=== PATIENT | female | born 1980 ===

== ENCOUNTER 2017-04-08 08:16 | Inpatient (IN) | payer BC ==
[2017-04-08] MEDS ORDERED: Sodium Chloride 0.9% 2.5 ML Syringe FLUSH PRN (08:36)
[2017-04-08] MEDS ORDERED: Methylergonovine 0.2 MG/1 ML Amp IM PRN (08:36)
[2017-04-08] MEDS ORDERED: Misoprostol 200 MCG Tab PO PRN (08:36)
[2017-04-08] MEDS ORDERED: Sodium Chloride 0.9% 10 ML Syringe FLUSH PRN (08:36)
[2017-04-08] MEDS ORDERED: Water For Irrigation,Sterile 1,000 ML Container IRR PRN (08:36)
[2017-04-08] MEDS ORDERED: Nalbuphine 10 MG/1 ML Vial IVPUSH PRN (08:36)
[2017-04-08] MEDS ORDERED: Tranexamic Acid 1,000 MG in Sodium Chloride 0.9% 100 ML IV PRN (08:36)
[2017-04-08] MEDS ORDERED: Carboprost Tromethamine 250 MCG/1 ML Amp IM PRN (08:36)
[2017-04-08] MEDS ORDERED: Lidocaine 1% 50 ML MDV INJECT PRN (08:36)
[2017-04-08] MEDS ORDERED: Terbutaline 1 MG/ML SDV SUBCUT PRN (08:38)
[2017-04-08] MEDS ORDERED: Oxytocin/0.9 % Sodium Chloride 30 UNIT/500 ML BAG IV SCH (08:45)
[2017-04-08] MEDS: Lactated Ringers 1,000 ML IV SCH ×2 (09:29→13:35)
--- NOTE | 2017-04-08 10:16 | PCM.LDHP ---
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 Source of Information: Patient History Limitations: Reports: No Limitations - History of Present Illness Improves with: Reports: None Worsens with: Reports: None Associated Symptoms: Reports: N - Related Data Allergies/Adverse Reactions: Allergies Allergy/AdvReac Type Severity Reaction Status Date / Time Sulfa (Sulfonamide Allergy Hives Verified 11/01/13 13:25 Antibiotics) Past Medical History ANESTHETIST History: Reports: , Spontaneous Neurological History: Reports: Migraines Psychiatric History: Reports: Depression, Mood Swings, Panic Attack - Infectious Disease History Infectious Disease History: Reports: Chicken Pox, Influenza Social & Family History - Family History HEENT: Reports: Cataract, Otitis Media Cardiac: Reports: High Cholesterol, Hypertension, [place] Respiratory: Reports: Sleep Apnea GI: Reports: Cholelithiasis : Reports: Renal Calculus OBGYN: Reports: Musculoskeletal: Reports: Arthritis, Back pain, Chronic, Neck Pain, Chronic Neurological: Reports: Migraines, Seizure Psychiatric: Reports: Abuse, Victim of, Anxiety, Bipolar, Depression, Mood Swings, OCD, Panic Attack - Tobacco Use Smoking Status *Q: Current Every Day Smoker Years of Tobacco use: 19 Packs/Tins Daily: 0.5 Second Hand Smoke Exposure: Yes - Caffeine Use Caffeine Use: Reports: Energy Drinks, Soda - Recreational Drug Use Recreational Drug Use: No H&P Review of Systems - Review of Systems: Review Of Systems: See Below General: Reports: No Symptoms HEENT: Reports: No Symptoms Pulmonary: Reports: No Symptoms Cardiovascular: Reports: No Symptoms Gastrointestinal: Reports: No Symptoms Genitourinary: Reports: No Symptoms Musculoskeletal: Reports: No Symptoms Skin: Reports: No Symptoms Psychiatric: Reports: No Symptoms Neurological: Reports: No Symptoms Hematologic/Lymphatic: Reports: No Symptoms Immunologic: Reports: No Symptoms L&D Exam - Exam Exam: See Below - Vital Signs Weight: 87.543 kg - Noguera Score Noguera Score Cervix Position: Midposition Noguera Score Consistency: Soft Noguera Score Effacement: >80% Noguera Score Dilation: 3-4 cm Noguera Score 's Station: -3 Noguera Score Total: 8 - Exam General: Alert, Oriented, Cooperative, Mild Distress HEENT: Hearing Intact Lungs: Clear to Auscultation, Normal Respiratory Effort Cardiovascular: Regular Rate, Regular Rhythm, Normal S1, Normal S2 GI/Abdominal Exam: Soft, Non-Tender Rectal Exam: Deferred Genitourinary: Normal external exam, Normal bimanual exam, Cervical dilitation Back Exam: Full Range of Motion Extremities: Normal Range of Motion, Non-Tender, No Pedal Edema, Normal Capillary Refill Skin: Warm, Dry, Intact Neurological: Reflexes Equal Bilateral, Normal Speech, Normal Tone Psychiatric: Alert, Normal Affect, Normal Mood - Patient Data Lab Results Last 24 hrs: Laboratory Results - last 24 hr 04/08/17 04/08/17 Range/Units 08:50 08:50 WBC 12.54 H (4.0-11.0) K/uL RBC 3.67 L (4.30-5.90) M/uL Hgb 9.9 L (12.0-16.0) g/dL Hct 30.3 L (36.0-46.0) % MCV 82.6 (80.0-98.0) fL MCH 27.0 (27.0-32.0) pg MCHC 32.7 (31.0-37.0) g/dL RDW Std Deviation 41.6 (28.0-62.0) fl RDW Coeff of Gely 14 (11.0-15.0) % Plt Count 365 (150-400) K/uL MPV 8.90 (7.40-12.00) fL Nucleated RBC % 0.0 /100WBC Nucleated RBCs # 0 K/uL Blood Type O POSITIVE Antibody Screen NEGATIVE Result Diagrams: 04/08/17 08:50 - Problem List (1) Supervision of normal IUP (intrauterine ) in multigravida SNOMED Code(s): 123106731, 832169101 ICD Code: Z34.80 - ENCOUNTER FOR SUPRVSN OF NORMAL , UNSP TRIMESTER Status: Acute Priority: High Current Visit: Yes Qualifiers: Trimester: third trimester Qualified Code(s): Z34.83 - Encounter for supervision of other normal , third trimester Problem List Initiated/Reviewed/Updated: Yes Orders Last 24hrs: Active Orders 24 hr Category Date Time Status Patient Status [ADT] Routine ADT 04/08/17 08:36 Active Bedrest Bathroom Privileges [RC] ASDIRECTED Care 04/08/17 08:38 Active Communication Order [RC] ASDIRECTED Care 04/08/17 08:38 Active Communication Order [RC] ASDIRECTED Care 04/08/17 08:38 Active Heart Tones [RC] CONTINUOUS Care 04/08/17 08:36 Active Non Stress Test [RC] PER UNIT ROUTINE Care 04/08/17 08:36 Active May Shower [RC] ASDIRECTED Care 04/08/17 08:36 Active Notify Provider [RC] PRN Care 04/08/17 08:36 Active Notify Provider [RC] PRN Care 04/08/17 08:38 Active Oxygen Therapy [RC] ASDIRECTED Care 04/08/17 08:38 Active Up ad Jeanette [RC] ASDIRECTED Care 04/08/17 08:36 Active Vaginal Exam [RC] PRN Care 04/08/17 08:36 Active Vaginal Exam [RC] PRN Care 04/08/17 08:38 Active Vital Signs [RC] PER UNIT ROUTINE Care 04/08/17 08:36 Active Vital Signs [RC] PER UNIT ROUTINE Care 04/08/17 08:38 Active Regular Diet [DIET] Diet 04/08/17 Lunch Active Carboprost Tromethamine [Hemabate DS] Med 04/08/17 08:36 Active 250 mcg IM ASDIRECTED PRN Lactated Ringers [Ringers, Lactated] 1,000 ml Med 04/08/17 08:45 Active IV ASDIRECTED Lidocaine 1% [Xylocaine 1%] Med 04/08/17 08:36 Active 50 ml INJECT .ONCE PRN Methylergonovine [Methergine] Med 04/08/17 08:36 Active 0.2 mg IM ASDIRECTED PRN Misoprostol [Cytotec] Med 04/08/17 08:36 Active 200 mcg PO .ONCE PRN Nalbuphine [Nubain] Med 04/08/17 08:36 Active 10 mg IVPUSH Q1H PRN Oxytocin/0.9 % Sodium Chloride [Oxytocin 30 Unit/500 ML Med 04/08/17 08:45 Active -NS] 30 unit in 500 ml IV TITRATE Sodium Chloride 0.9% [Saline Flush] Med 04/08/17 08:36 Active 10 ml FLUSH ASDIRECTED PRN Sodium Chloride 0.9% [Saline Flush] Med 04/08/17 08:36 Active 2.5 ml FLUSH ASDIRECTED PRN Terbutaline [Brethine] Med 04/08/17 08:38 Active 0.25 mg SUBCUT ASDIRECTED PRN Tranexamic Acid [Cyklokapron] 1,000 mg Med 04/08/17 08:36 Active Sodium Chloride 0.9% [Normal Saline] 100 ml IV ONETIME Water For Irrigation,Sterile [Sterile Water for Med 04/08/17 08:36 Active Irrigation] 1,000 ml IRR ASDIRECTED PRN Scalp Electrode [WOMSER] Per Unit Routine Oth 04/08/17 08:36 Ordered Medication Administration Instruction [OM.PC] Q3H Oth 04/08/17 08:45 Ordered Peripheral IV Insertion Adult [OM.PC] Routine Oth 04/08/17 08:36 Ordered Resuscitation Status Routine Resus Stat 04/08/17 08:36 Ordered Medication Orders Carboprost Tromethamine (Hemabate Ds) 250 mcg IM ASDIRECTED PRN PRN Reason: Post Hemorrhage Lactated Ringer's (Ringers, Lactated) 1,000 mls @ 150 mls/hr IV ASDIRECTED JENNIFER Last Admin: 04/08/17 09:29 Dose: 150 mls/hr Tranexamic Acid 1,000 mg/ (Sodium Chloride) 110 mls @ 660 mls/hr IV ONETIME PRN PRN Reason: Bleeding Oxytocin/Sodium Chloride (Oxytocin 30 Unit/500 Ml-Ns) 30 unit in 500 mls @ 2 mls/hr IV TITRATE JENNIFER; 2 MUNITS/MIN PRN Reason: Protocol Last Titration: 04/08/17 09:58 Dose: 4 munits/min, 4 mls/hr Admin: 04/08/17 09:31 Dose: 2 munits/min, 2 mls/hr Lidocaine HCl (Xylocaine 1%) 50 ml INJECT .ONCE PRN PRN Reason: Laceration repair Methylergonovine Maleate (Methergine) 0.2 mg IM ASDIRECTED PRN PRN Reason: Post Hemorrhage Misoprostol (Cytotec) 200 mcg PO .ONCE PRN PRN Reason: Post Hemorrhage Nalbuphine HCl (Nubain) 10 mg IVPUSH Q1H PRN PRN Reason: Pain (severe 7-10) Sodium Chloride (Saline Flush) 10 ml FLUSH ASDIRECTED PRN PRN Reason: Keep Vein Open Sodium Chloride (Saline Flush) 2.5 ml FLUSH ASDIRECTED PRN PRN Reason: Keep Vein Open Sterile Water (Sterile Water For Irrigation) 1,000 ml IRR ASDIRECTED PRN PRN Reason: delivery Terbutaline Sulfate (Brethine) 0.25 mg SUBCUT ASDIRECTED PRN PRN Reason: Tacysystole Assessment/Plan Comment:: IOL A: 36 yo EDC 04/14/2017 39 0/7 O+, RI, GBS neg, 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
--- NOTE | 2017-04-08 13:15 | PCM.PREANE ---
Preanesthetic Assessment - Anesthesia/Transfusion/Family Hx Anesthesia History: Prior Anesthesia Without Reaction - Review of Systems General: No Symptoms Pulmonary: No Symptoms Cardiovascular: No Symptoms Gastrointestinal: No Symptoms Neurological: No Symptoms Other: Reports: None - Physical Assessment Height: 5 ft 7 in Weight: 87.543 kg ASA Class: 2 Mental Status: Alert & Oriented x3 Airway Class: Mallampati = 2 Dentition: Reports: Normal Dentition Thyro-Mental Finger Breadths: 3 Mouth Opening Finger Breadths: 3 ROM/Head Extension: Full Lungs: Clear to Auscultation, Normal Respiratory Effort Cardiovascular: Regular Rate, Regular Rhythm - Lab Values: Laboratory Last Values WBC 12.54 K/uL (4.0-11.0) H 04/08/17 08:50 RBC 3.67 M/uL (4.30-5.90) L 04/08/17 08:50 Hgb 9.9 g/dL (12.0-16.0) L 04/08/17 08:50 Hct 30.3 % (36.0-46.0) L 04/08/17 08:50 MCV 82.6 fL (80.0-98.0) 04/08/17 08:50 MCH 27.0 pg (27.0-32.0) 04/08/17 08:50 MCHC 32.7 g/dL (31.0-37.0) 04/08/17 08:50 RDW Std Deviation 41.6 fl (28.0-62.0) 04/08/17 08:50 RDW Coeff of Gely 14 % (11.0-15.0) 04/08/17 08:50 Plt Count 365 K/uL (150-400) 04/08/17 08:50 MPV 8.90 fL (7.40-12.00) 04/08/17 08:50 Nucleated RBC % 0.0 /100WBC 04/08/17 08:50 Nucleated RBCs # 0 K/uL 04/08/17 08:50 Blood Type O POSITIVE 04/08/17 08:50 Antibody Screen NEGATIVE 04/08/17 08:50 - Allergies Allergies/Adverse Reactions: Allergies Allergy/AdvReac Type Severity Reaction Status Date / Time Sulfa (Sulfonamide Allergy Hives Verified 11/01/13 13:25 Antibiotics) - Acknowledgements Anesthesia Type Planned: Epidural Pt an Appropriate Candidate for the Planned Anesthesia: Yes Alternatives and Risks of Anesthesia Discussed w Pt/Guardian: Yes Pt/Guardian Understands and Agrees with Anesthesia Plan: Yes PreAnesthesia Questionnaire HEENT History: Reports: None Cardiovascular History: Reports: None Respiratory History: Reports: Other (See Below) (smoker) Gastrointestinal History: Reports: GERD Genitourinary History: Reports: None 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: , 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 : 5 Para: 3 LMP (Approximate): Musculoskeletal History: Reports: None Neurological History: Reports: Migraines Psychiatric History: Reports: Depression, Mood Swings, Panic Attack Endocrine/Metabolic History: Reports: None Hematologic History: Reports: Anemia Immunologic History: Reports: None Oncologic (Cancer) History: Reports: None Dermatologic History: Reports: None - Infectious Disease History Infectious Disease History: Reports: Chicken Pox, Influenza - SUBSTANCE USE Smoking Status *Q: Current Every Day Smoker Tobacco Use Within Last Twelve Months: Cigarettes Second Hand Smoke Exposure: Yes Recreational Drug Use History: No - CURRENT (IN HOUSE) MEDS Current Meds: Current Medications Carboprost Tromethamine (Hemabate Ds) 250 mcg IM ASDIRECTED PRN PRN Reason: Post Hemorrhage Lactated Ringer's (Ringers, Lactated) 1,000 mls @ 150 mls/hr IV ASDIRECTED JENNIFER Last Admin: 04/08/17 09:29 Dose: 150 mls/hr Tranexamic Acid 1,000 mg/ (Sodium Chloride) 110 mls @ 660 mls/hr IV ONETIME PRN PRN Reason: Bleeding Oxytocin/Sodium Chloride (Oxytocin 30 Unit/500 Ml-Ns) 30 unit in 500 mls @ 2 mls/hr IV TITRATE JENNIFER; 2 MUNITS/MIN PRN Reason: Protocol Last Titration: 04/08/17 11:59 Dose: 12 munits/min, 12 mls/hr Lidocaine HCl (Xylocaine 1%) 50 ml INJECT .ONCE PRN PRN Reason: Laceration repair Methylergonovine Maleate (Methergine) 0.2 mg IM ASDIRECTED PRN PRN Reason: Post Hemorrhage Misoprostol (Cytotec) 200 mcg PO .ONCE PRN PRN Reason: Post Hemorrhage Nalbuphine HCl (Nubain) 10 mg IVPUSH Q1H PRN PRN Reason: Pain (severe 7-10) Sodium Chloride (Saline Flush) 10 ml FLUSH ASDIRECTED PRN PRN Reason: Keep Vein Open Sodium Chloride (Saline Flush) 2.5 ml FLUSH ASDIRECTED PRN PRN Reason: Keep Vein Open Sterile Water (Sterile Water For Irrigation) 1,000 ml IRR ASDIRECTED PRN PRN Reason: delivery Terbutaline Sulfate (Brethine) 0.25 mg SUBCUT ASDIRECTED PRN PRN Reason: Tacysystole
[2017-04-08] MEDS ORDERED: Ibuprofen 800 MG Tab PO PRN (15:45)
[2017-04-08] MEDS ORDERED: Witch Hazel Medicated Pads 40/Jar TOP PRN (15:45)
[2017-04-08] MEDS ORDERED: Lanolin 100% Cream 7 GM Tube TOP PRN (15:45)
[2017-04-08] MEDS ORDERED: Benzocaine/Menthol 20%-0.5% Spray 78 GM Cannister TOP PRN (15:45)
[2017-04-08] MEDS ORDERED: oxyCODONE 5 MG Tab PO PRN (15:45)
[2017-04-08] MEDS ORDERED: Bisacodyl 10 MG Supp RECTAL PRN (15:45)
[2017-04-08] MEDS ORDERED: Ibuprofen 400 MG Tab PO PRN (15:45)
[2017-04-08] MEDS ORDERED: Acetaminophen 500 MG Tab PO PRN (15:45)
[2017-04-08] MEDS ORDERED: Docusate Sodium 100 MG Cap PO PRN (15:45)
--- NOTE | 2017-04-08 17:57 | PCM.DEL ---
L & D Note - General Info Date of Service: 04/08/17 Mother's Due Date: 04/14/17 - Delivery Note Labor: Spontaneous Delivery Outcome: Livebirth Infant Delivery Method: Spontaneous Vaginal Delivery-Single Delivery Mode: Spontaneous Presentation: Vertex Nuchal Cord: None Anesthesia Type: Epidural Local Anesthetic Volume: 1cc Episiotomy Type: None Laceration: None Placenta: Intact, Spontaneous Cord: 3 Vessels Estimated Blood Loss: 200 Score 1 min: 9 Score 5 min: 9 Second Stage Interventions: Reports: Pushing Effectively, Pushing, Pulls Own Legs Back Delivery Comments (Free Text/Narrative):: of viable female over intact perineum, Head delivered with good pushing then shoulders and body followed easily. Spont cry. on mother abdomen with RN at for evaluation. Delayed cord clamping. Pitocin to IVF. Cord clamped and cut by FOB. Cord blood collected. Placenta delivered grossly intact. Inspection noted intact perineum. Bimanual normal. EBL 200cc, APGARS 9/9 , Wt 6lb 15oz, mother and baby left in stable condition bonding well in recovery. - Patient Data Weight - Most Recent: 87.543 kg Lab Results Last 24 Hours: Laboratory Results - last 24 hr 04/08/17 04/08/17 Range/Units 08:50 08:50 WBC 12.54 H (4.0-11.0) K/uL RBC 3.67 L (4.30-5.90) M/uL Hgb 9.9 L (12.0-16.0) g/dL Hct 30.3 L (36.0-46.0) % MCV 82.6 (80.0-98.0) fL MCH 27.0 (27.0-32.0) pg MCHC 32.7 (31.0-37.0) g/dL RDW Std Deviation 41.6 (28.0-62.0) fl RDW Coeff of Gely 14 (11.0-15.0) % Plt Count 365 (150-400) K/uL MPV 8.90 (7.40-12.00) fL Nucleated RBC % 0.0 /100WBC Nucleated RBCs # 0 K/uL Blood Type O POSITIVE Antibody Screen NEGATIVE Med Orders - Current: Current Medications Acetaminophen (Tylenol Extra Strength) 500 mg PO Q4H PRN PRN Reason: Pain Acetaminophen (Tylenol Extra Strength) 1,000 mg PO Q4H PRN PRN Reason: Pain Benzocaine/Menthol (Dermoplast Pain Relief 20%-0.5% [place]) 78 gm TOP ASDIRECTED PRN PRN Reason: Perineal Comfort Measure Bisacodyl (Dulcolax) 10 mg RECTAL .ONCE PRN PRN Reason: Constipation Docusate Sodium (Colace) 100 mg PO BID PRN PRN Reason: Constipation Emollient Ointment (Lansinoh Hpa) 0 gm TOP ASDIRECTED PRN PRN Reason: Sore Nipples Ibuprofen (Motrin) 400 mg PO Q4H PRN PRN Reason: Pain Ibuprofen (Motrin) 800 mg PO Q6H PRN PRN Reason: Pain Oxycodone HCl (Oxycodone) 5 mg PO Q2H PRN PRN Reason: Pain Witch Alina (Tucks) 1 pad TOP ASDIRECTED PRN PRN Reason: comfort care Discontinued Medications Carboprost Tromethamine (Hemabate Ds) 250 mcg IM ASDIRECTED PRN PRN Reason: Post Hemorrhage Lactated Ringer's (Ringers, Lactated) 1,000 mls @ 150 mls/hr IV ASDIRECTED JENNIFER Last Admin: 04/08/17 13:35 Dose: 150 mls/hr Tranexamic Acid 1,000 mg/ (Sodium Chloride) 110 mls @ 660 mls/hr IV ONETIME PRN PRN Reason: Bleeding Oxytocin/Sodium Chloride (Oxytocin 30 Unit/500 Ml-Ns) 30 unit in 500 mls @ 2 mls/hr IV TITRATE JENNIFER; 2 MUNITS/MIN PRN Reason: Protocol Last Titration: 04/08/17 14:28 Dose: 14 munits/min, 14 mls/hr Fentanyl/Bupivacaine HCl (Snrebsco-Rkses-Rl 2 Mcg/Ml-0.125%) Confirm Administered Dose 100 mls @ as directed EP .[facility] Stop: 04/08/17 13:17 Lidocaine HCl (Xylocaine 1%) 50 ml INJECT .ONCE PRN PRN Reason: Laceration repair Methylergonovine Maleate (Methergine) 0.2 mg IM ASDIRECTED PRN PRN Reason: Post Hemorrhage Misoprostol (Cytotec) 200 mcg PO .ONCE PRN PRN Reason: Post Hemorrhage Nalbuphine HCl (Nubain) 10 mg IVPUSH Q1H PRN PRN Reason: Pain (severe 7-10) Sodium Chloride (Saline Flush) 10 ml FLUSH ASDIRECTED PRN PRN Reason: Keep Vein Open Sodium Chloride (Saline Flush) 2.5 ml FLUSH ASDIRECTED PRN PRN Reason: Keep Vein Open Sterile Water (Sterile Water For Irrigation) 1,000 ml IRR ASDIRECTED PRN PRN Reason: delivery Terbutaline Sulfate (Brethine) 0.25 mg SUBCUT ASDIRECTED PRN PRN Reason: Tacysystole - Problem List & Annotations (1) Supervision of normal IUP (intrauterine ) in multigravida SNOMED Code(s): 233857998, 787110341 Code(s): Z34.80 - ENCOUNTER FOR SUPRVSN OF NORMAL , UNSP TRIMESTER Status: Acute Priority: High Current Visit: Yes Qualifiers: Trimester: third trimester Qualified Code(s): Z34.83 - Encounter for supervision of other normal , third trimester - Problem List Review Problem List Initiated/Reviewed/Updated: Yes - My Orders Last 24 Hours: My Active Orders 04/08/17 08:36 Heart Tones [RC] CONTINUOUS Non Stress Test [RC] PER UNIT ROUTINE May Shower [RC] ASDIRECTED Notify Provider [RC] PRN Up ad Jeanette [RC] ASDIRECTED Vaginal Exam [RC] PRN Vital Signs [RC] PER UNIT ROUTINE 04/08/17 15:45 Acetaminophen [Tylenol Extra Strength] 1,000 mg PO Q4H PRN Acetaminophen [Tylenol Extra Strength] 500 mg PO Q4H PRN Benzocaine/Menthol [Dermoplast Pain Relief 20%-0.5% [place]] 78 gm TOP ASDIRECTED PRN Bisacodyl [Dulcolax] 10 mg RECTAL .ONCE PRN Docusate Sodium [Colace] 100 mg PO BID PRN Ibuprofen [Motrin] 400 mg PO Q4H PRN Ibuprofen [Motrin] 800 mg PO Q6H PRN Lanolin [Lansinoh HPA] See Dose Instructions TOP ASDIRECTED PRN Witch Alina [Tucks] 1 pad TOP ASDIRECTED PRN oxyCODONE 5 mg PO Q2H PRN Resuscitation Status Routine 04/08/17 15:46 Patient Status [ADT] Routine May Shower [RC] ASDIRECTED Up ad Jeanette [RC] ASDIRECTED Vital Signs [RC] PER UNIT ROUTINE Assess Lochia [WOMSER] Per Unit Routine Assess Uterine Involution [WOMSER] Per Unit Routine Peripheral IV Discontinue [OM.PC] Routine 04/08/17 Dinner Regular Diet [DIET] - Plan Plan:: IOL A: 36 yo EDC 04/14/2017 39 0/7 O+, RI, GBS neg, 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
[2017-04-08] MEDS: Acetaminophen 500 MG Tab PO PRN (22:55)
--- NOTE | 2017-04-09 08:49 | PCM.DCSUM1 ---
Discharge Summary - Hospital Course Free Text/Narrative:: Discharge home with . Follow up 6 weeks for post . Come sooner if needed. - Discharge Data Discharge Date: 04/09/17 Discharge Disposition: Home, Self-Care 01 Condition: Good - Discharge Diagnosis/Problem(s) (1) Supervision of normal IUP (intrauterine ) in multigravida SNOMED Code(s): 284417386, 145973735 ICD Code: Z34.80 - ENCOUNTER FOR SUPRVSN OF NORMAL , UNSP TRIMESTER Status: Acute Priority: High Current Visit: Yes Qualifiers: Trimester: third trimester Qualified Code(s): Z34.83 - Encounter for supervision of other normal , third trimester - Patient Instructions Diet: Usual Diet as Tolerated Activity: As Tolerated, No Strenuous Activities, Rest and Relax Today Driving: May Drive Today Showering/Bathing: May Shower Notify Provider of: Fever, Increased Pain, Swelling and Redness, Nausea and/or Vomiting - Discharge Plan Referrals: Jillian Yepez CNM [Mid-] - 05/23/17 8:30 am - General Info Date of Service: 04/09/17 Admission Dx/Problem (Free Text: Patient Status Order with Admit Dx/Problem 04/08/17 08:36 Patient Status [ADT] Routine Admission Diagnosis/Problem Admission Diagnosis/Problem 04/08/17 10:11 36 yo EDC 04/14/2017 39 0/7 O+, RI, GBS neg, 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 Functional Status: Reports: Pain Controlled, Tolerating Diet, Ambulating, Urinating - Review of Systems General: Reports: No Symptoms HEENT: Reports: No Symptoms Pulmonary: Reports: No Symptoms Cardiovascular: Reports: No Symptoms Gastrointestinal: Reports: No Symptoms Genitourinary: Reports: No Symptoms Musculoskeletal: Reports: No Symptoms Skin: Reports: No Symptoms Neurological: Reports: No Symptoms Psychiatric: Reports: No Symptoms - Patient Data Vitals - Most Recent: Last Vital Signs Temp 36.7 C 04/09/17 07:33 Pulse 69 04/09/17 07:33 Resp 15 04/09/17 07:33 BP 112/65 04/09/17 07:33 Pulse Ox 97 04/09/17 07:33 Weight - Most Recent: 87.543 kg Lab Results - Last 24 hrs: Laboratory Results - last 24 hr 04/08/17 04/08/17 Range/Units 08:50 08:50 WBC 12.54 H (4.0-11.0) K/uL RBC 3.67 L (4.30-5.90) M/uL Hgb 9.9 L (12.0-16.0) g/dL Hct 30.3 L (36.0-46.0) % MCV 82.6 (80.0-98.0) fL MCH 27.0 (27.0-32.0) pg MCHC 32.7 (31.0-37.0) g/dL RDW Std Deviation 41.6 (28.0-62.0) fl RDW Coeff of Gely 14 (11.0-15.0) % Plt Count 365 (150-400) K/uL MPV 8.90 (7.40-12.00) fL Nucleated RBC % 0.0 /100WBC Nucleated RBCs # 0 K/uL Blood Type O POSITIVE Antibody Screen NEGATIVE Med Orders - Current: Current Medications Acetaminophen (Tylenol Extra Strength) 500 mg PO Q4H PRN PRN Reason: Pain Acetaminophen (Tylenol Extra Strength) 1,000 mg PO Q4H PRN PRN Reason: Pain Last Admin: 04/08/17 22:55 Dose: 1,000 mg Benzocaine/Menthol (Dermoplast Pain Relief 20%-0.5% [place]) 78 gm TOP ASDIRECTED PRN PRN Reason: Perineal Comfort Measure Bisacodyl (Dulcolax) 10 mg RECTAL .ONCE PRN PRN Reason: Constipation Docusate Sodium (Colace) 100 mg PO BID PRN PRN Reason: Constipation Emollient Ointment (Lansinoh Hpa) 0 gm TOP ASDIRECTED PRN PRN Reason: Sore Nipples Ibuprofen (Motrin) 400 mg PO Q4H PRN PRN Reason: Pain Ibuprofen (Motrin) 800 mg PO Q6H PRN PRN Reason: Pain Oxycodone HCl (Oxycodone) 5 mg PO Q2H PRN PRN Reason: Pain Witch Alina (Tucks) 1 pad TOP ASDIRECTED PRN PRN Reason: comfort care Discontinued Medications Carboprost Tromethamine (Hemabate Ds) 250 mcg IM ASDIRECTED PRN PRN Reason: Post Hemorrhage Lactated Ringer's (Ringers, Lactated) 1,000 mls @ 150 mls/hr IV ASDIRECTED JENNIFER Last Admin: 04/08/17 13:35 Dose: 150 mls/hr Tranexamic Acid 1,000 mg/ (Sodium Chloride) 110 mls @ 660 mls/hr IV ONETIME PRN PRN Reason: Bleeding Oxytocin/Sodium Chloride (Oxytocin 30 Unit/500 Ml-Ns) 30 unit in 500 mls @ 2 mls/hr IV TITRATE JENNIFER; 2 MUNITS/MIN PRN Reason: Protocol Last Titration: 04/08/17 14:28 Dose: 14 munits/min, 14 mls/hr Fentanyl/Bupivacaine HCl (Ezgastyt-Qpwpd-Jd 2 Mcg/Ml-0.125%) Confirm Administered Dose 100 mls @ as directed EP .[facility] ONE Stop: 04/08/17 13:17 Last Admin: 04/09/17 00:41 Dose: Not Given Lidocaine HCl (Xylocaine 1%) 50 ml INJECT .ONCE PRN PRN Reason: Laceration repair Methylergonovine Maleate (Methergine) 0.2 mg IM ASDIRECTED PRN PRN Reason: Post Hemorrhage Misoprostol (Cytotec) 200 mcg PO .ONCE PRN PRN Reason: Post Hemorrhage Nalbuphine HCl (Nubain) 10 mg IVPUSH Q1H PRN PRN Reason: Pain (severe 7-10) Sodium Chloride (Saline Flush) 10 ml FLUSH ASDIRECTED PRN PRN Reason: Keep Vein Open Sodium Chloride (Saline Flush) 2.5 ml FLUSH ASDIRECTED PRN PRN Reason: Keep Vein Open Sterile Water (Sterile Water For Irrigation) 1,000 ml IRR ASDIRECTED PRN PRN Reason: delivery Terbutaline Sulfate (Brethine) 0.25 mg SUBCUT ASDIRECTED PRN PRN Reason: Tacysystole - Exam General: Reports: Alert, Oriented, Cooperative, No Acute Distress Lungs: Reports: Normal Respiratory Effort GI/Abdominal Exam: Soft, Non-Tender (Female) Exam: Vaginal Bleeding Rectal (Female) Exam: Deferred Back Exam: Reports: Full Range of Motion Extremities: Normal Range of Motion, Non-Tender, No Pedal Edema, Normal Capillary Refill Skin: Reports: Warm, Dry, Intact Wound/Incisions: Reports: Healing Well Neurological: Reports: No New Focal Deficit, Normal Gait, Normal Speech, Normal Tone Psy/Mental Status: Reports: Alert, Normal Affect, Normal Mood *Q Meaningful Use (DIS) - VTE *Q VTE Criteria *Q: - Stroke *Q Stroke Criteria *Q: - AMI *Q AMI Criteria *Q:
[2017-04-09] MEDS: Acetaminophen 500 MG Tab PO PRN (11:35)
--- NOTE | 2017-04-09 16:55 | PCM48HPAN ---
Post Anesthesia Note - EVALUATION WITHIN 48HRS OF ANESTHETIC Vital Signs in Normal Range: Yes Patient Participated in Evaluation: Yes Respiratory Function Stable: Yes Airway Patent: Yes Cardiovascular Function Stable: Yes Hydration Status Stable: Yes Pain Control Satisfactory: Yes Nausea and Vomiting Control Satisfactory: Yes Mental Status Recovered: Yes Resp Rate: 17
== END 2017-04-09 17:20 | disposition home or self-care (01) | DRG 775 ==
LOC: MW.OBCHECK 08:16 → MW.OB 08:36 → OBSVTOIN 15:46 → MW.OB 21:16
PROVIDERS: ADMIT Obstetrics & Gynecology; ATTEND Obstetrics & Gynecology
PROC: 10E0XZZ Delivery of Products of Conception, External Approach (ICD-10-PCS; principal; 2017-04-08)
PROC: 3E033VJ Introduction of Other Hormone into Peripheral Vein, Percutaneous Approach (ICD-10-PCS; 2017-04-08)
DX: O80 Encounter for full-term uncomplicated delivery (principal); O09.523 Supervision of elderly multigravida, third trimester; O09.43 Supervision of pregnancy with grand multiparity, third trimester; Z37.0 Single live birth; Z3A.39 39 weeks gestation of pregnancy; Z88.2 Allergy status to sulfonamides
CPT/HCPCS: 01967; 36415; 51702; 59025; 59409; 85027; 86850; 86900; 86901; A9270-GY; J2590; J7120

== ENCOUNTER 2017-04-22 21:58 | Emergency (ER) | payer BC ==
--- NOTE | 2017-04-22 22:22 | EDM.PDOC ---
ED HPI GENERAL MEDICAL PROBLEM - General Chief Complaint: Skin Complaint Stated Complaint: HIVES Time Seen by Provider: 04/22/17 22:19 - History of Present Illness INITIAL COMMENTS - FREE TEXT/NARRATIVE: HISTORY AND PHYSICAL: History of present illness: Patient 36-year-old female presented concern of a rash she states she recently started a new medication in form of Zoloft this rash involves her chest and face is not pruritic is no tongue or lip swelling difficulty swallowing breathing or other complaints Review of systems: As per history of present illness and below otherwise all systems reviewed and negative. Past medical history: As per history of present illness and as reviewed below otherwise noncontributory. Surgical history: As per history of present illness and as reviewed below otherwise noncontributory. Social history: No reported history of drug or alcohol abuse. Family history: As per history of present illness and as reviewed below otherwise noncontributory. Physical exam: HEENT: Atraumatic, normocephalic, pupils reactive, negative for conjunctival pallor or scleral icterus, mucous membranes moist, throat clear, neck supple, nontender, trachea midline. Lungs: Clear to auscultation, breath sounds equal bilaterally, chest nontender. Heart: S1S2, regular, negative for clicks, rubs, or JVD. Abdomen: Soft, nondistended, nontender. Negative for masses or hepatosplenomegaly. Negative for costovertebral tenderness. Pelvis: Stable nontender. Genitourinary: Deferred. Rectal: Deferred. Extremities: Atraumatic, negative for cords or calf pain. Neurovascular unremarkable. Neuro: Awake, alert, oriented. Cranial nerves II through XII unremarkable. Cerebellum unremarkable. Motor and sensory unremarkable throughout. Exam nonfocal. Skin: Patient is noted to have a urticarial type rash on her chest and face. Diagnostics: None Therapeutics: None Impression: #1 urticaria rule out drug reaction Definitive disposition and diagnosis as appropriate pending reevaluation and review of above. 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 Musculoskeletal History: Reports: Neck Pain, Chronic Neurological History: Reports: Migraines Psychiatric History: Reports: Depression, Mood Swings, Panic Attack Endocrine/Metabolic History: Reports: None Hematologic History: Reports: Anemia Immunologic History: Reports: None Oncologic (Cancer) History: Reports: None Dermatologic History: Reports: None - Infectious Disease History Infectious Disease History: Reports: Chicken Pox, Influenza Social & Family History - Family History Family Medical History: Noncontributory HEENT: Reports: Cataract, Otitis Media Cardiac: Reports: High Cholesterol, Hypertension, [place] Respiratory: Reports: Sleep Apnea GI: Reports: Cholelithiasis : Reports: Renal Calculus OBGYN: Reports: Musculoskeletal: Reports: Arthritis, Back pain, Chronic, Neck Pain, Chronic Neurological: Reports: Migraines, Seizure Psychiatric: Reports: Abuse, Victim of, Anxiety, Bipolar, Depression, Mood Swings, OCD, Panic Attack - Tobacco Use Smoking Status *Q: Current Every Day Smoker Years of Tobacco use: 15 Packs/Tins Daily: 1 Second Hand Smoke Exposure: Yes - Caffeine Use Caffeine Use: Reports: Energy Drinks, Soda - Recreational Drug Use Recreational Drug Use: No ED ROS GENERAL - Review of Systems Review Of Systems: ROS reveals no pertinent complaints other than HPI. ED EXAM, SKIN/RASH Exam: See Below (See dictation) Course - Vital Signs Last Recorded V/S: Last Vital Signs Temp 36.4 C 04/22/17 21:58 Pulse 55 L 04/22/17 21:58 Resp 18 04/22/17 21:58 BP 188/82 H 04/22/17 21:58 Pulse Ox 98 04/22/17 21:58 Departure - Departure Time of Disposition: 22:21 Disposition: Home, Self-Care 01 Condition: Good Clinical Impression: Urticaria - Discharge Information Referrals: Ernestian Swan, HOSPITAL SOCIAL WORKER [Primary Care Provider] - Additional Instructions: The following information is given to patients seen in the emergency department who are being discharged to home. This information is to outline your options for follow-up care. We provide all patients seen in our emergency department with a follow-up referral. The need for follow-up, as well as the timing and circumstances, are variable depending upon the specifics of your emergency department visit. If you don't have a primary care physician on staff, we will provide you with a referral. We always advise you to contact your personal physician following an emergency department visit to inform them of the circumstance of the visit and for follow-up with them and/or the need for any referrals to a consulting specialist. The emergency department will also refer you to a specialist when appropriate. This referral assures that you have the opportunity for followup care with a specialist. All of these measure are taken in an effort to provide you with optimal care, which includes your followup. Under all circumstances we always encourage you to contact your private physician who remains a resource for coordinating your care. When calling for followup care, please make the office aware that this follow-up is from your recent emergency room visit. If for any reason you are refused follow-up, please contact the [facility] emergency department at and asked to speak to the emergency department charge nurse. Benadryl Medrol stopped Zoloft as discussed follow-up primary medical doctor return as needed as discussed
== END 2017-04-22 22:45 | disposition home or self-care (01) ==
LOC: MW.ED 21:58
DX: L50.9 Urticaria, unspecified (principal); I10 Essential (primary) hypertension; F17.210 Nicotine dependence, cigarettes, uncomplicated; Z88.2 Allergy status to sulfonamides; Z79.899 Other long term (current) drug therapy
CPT/HCPCS: 99282